=== PATIENT | female | born 1950 | race Caucasian/White ===

== ENCOUNTER 2018-03-31 15:34 | Emergency (ER) | payer OTHER, MEDICAID, MEDICARE ==
[2018-03-31] MEDS: BENZTROPINE 1 MG TAB PO (16:05)
[2018-03-31] MEDS: DIPHENHYDRAMINE 25 MG CAP PO (16:05)
== END 2018-03-31 17:26 | disposition home or self-care (01) ==
LOC: E/R 15:34
DX: G24.02 Drug induced acute dystonia (principal)
CPT/HCPCS: 99283